=== PATIENT | female | born 1985 | race African-American/Black ===

== ENCOUNTER 2016-11-03 13:45 | Outpatient (CLI) | payer BC ==
--- NOTE | 2016-11-03 15:30 | Fluoroscopy Report ---
FLUORO GUIDED HSG INDICATION: Polycystic ovaries. COMPARISON: None similar at this institution. FINDINGS: Hysterosalpingogram performed with cervix cannulated using standard sterile precautions. Preliminary radiograph demonstrates no significant abnormality. Hand injection of 16 cc of Omnipaque-300 under fluoroscopy suggests normal uterine cavity/contour, to the extent assessed. Prompt opacification of normal caliber bilateral fallopian tubes with prompt free spillage into the peritoneal cavity on the left. Distal half of the right fallopian tube though not identified despite further contrast hand injection. Spilled intraperitoneal contrast noted crossing over from left to right as on images 9-12. CONCLUSION: 1. Right fallopian tube appears occluded along its mid portion without evidence of free intraperitoneal spill on this side. 2. Unremarkable imaged uterus and patent left fallopian tube, as described. Thank you for the opportunity to participate in this patient's care.
== END 2016-11-03 13:46 | disposition home or self-care (01) ==
LOC: FLUORO 13:45
PROVIDERS: ATTEND Obstetrics & Gynecology Gynecology
DX: E28.2 Polycystic ovarian syndrome (principal)
CPT/HCPCS: 58340; 74740; Q9967